=== PATIENT | male | born 1940 | race Caucasian/White ===

== ENCOUNTER 2018-05-04 07:23 | Observation (INO) ==
--- NOTE | 2018-05-04 08:05 | XR ---
EXAM DATE: 05/04/2018 8:03 AM EST AGE/SEX: 78 years / Male INDICATIONS: Chest pain. CLINICAL DATA: This is the patient's initial encounter. Patient reports that signs and symptoms have been present for 3 days and indicates a pain score of 8/10. MEDICAL/SURGICAL HISTORY: None. None. COMPARISON: No prior exams available for comparison. FINDINGS: A single AP view of the chest demonstrates the lungs to be symmetrically aerated without evidence of mass, infiltrate or effusion. The cardiomediastinal contours are unremarkable. Osseous structures a re intact. CONCLUSION: No focal or acute intrathoracic disease. Electronically signed by: Jhonny Gutierrez MD Board Certified Radiologist 05/04/2018 8:04 AM EST
[2018-05-04 08:08] LABS: Baso % (Auto) 0.2 % (0.0-2.0); Eos % (Auto) 0.2 % (0.0-4.0); Hematocrit 50.4 % (39.0-51.0); Hemoglobin 16.9 gm/dL (13.0-17.0); Lymph # (Auto) 3.1 th/mm3 (1.0-4.8); Lymph % (Auto) 24.9 % (9.0-44.0); Mean Corpuscular HGB Conc 33.5 % (32.0-36.0); Mean Corpuscular Hemoglobin 33.1 pg (27.0-34.0); Mean Corpuscular Volume 99.1 fL (80.0-100.0); Mean Platelet Volume 7.4 fL (7.0-11.0); Mono # (Auto) 1.2 th/mm3 (0.0-0.9); Mono % (Auto) 10.2 % (0.0-8.0); Neut # (Auto) 7.9 th/mm3 (1.8-7.7); Neut % (Auto) 64.5 % (16.0-70.0); Platelet Count 265 th/mm3 (150-450); Red Blood Count 5.09 mil/mm3 (4.50-5.90); Red Cell Distribution Width 14.3 % (11.6-17.2); White Blood Count 12.3 th/mm3 (4.0-11.0)
--- NOTE | 2018-05-04 08:09 | ED ---
HPI General Chief Complaint: Chest Pain Stated Complaint: chest pain Time Seen by Provider: 05/04/18 07:44 Source: patient and family Mode of arrival: ambulatory Limitations: no limitations History of Present Illness HPI narrative: Patient is a pleasant 78-year-old male who presents the emergency room with complaints of chest pain. Patient reports that he has history of gout as well as hypertension. Patient reports that he has been having chest pain over the past few days. Chest pain is intermittent in nature. Patient reports that the pain was worse yesterday and has been persistent. Reports that the pain started when he went on [employer] [place]. Patient reports that the pain feels like a sharp, dull pain to his chest. It is substernal in nature and radiates across his chest to his right shoulder. Patient reports that chest pain is exacerbated by inspiration. He is having shortness of breath at rest as well as on exertion. Patient reports that he has had chest pain for the past 10 years, reports that he has had workups in [place] and the agile java developer could not find out why he was having these chest pains. He was last seen by a agile java developer in [place] about 5-6 years ago, he has not established care with a agile java developer here in [place]. He currently lives in [place]. Onset (ago): day(s) Duration: constant Onset: during rest and during exertion Pain location: Reports substernal and right chest Severity: similar to previous episodes Severity scale (1-10): 5 Quality: Reports tightness and aching Pain radiation: Reports RUE Relieving factors: nothing Exacerbating factors: inspiration Treatments prior to arrival chest pain: Reports none Related Data Home Medications Medication Instructions Recorded Confirmed allopurinol 100 mg PO DAILY 05/04/18 05/04/18 losartan 50 mg PO DAILY 05/04/18 05/04/18 metoprolol tartrate 25 mg PO BID 05/04/18 05/04/18 Allergies Allergy/AdvReac Type Severity Reaction Status Date / Time No Known Allergies Allergy Verified 05/04/18 07:40 Review of Systems ROS: all other systems reviewed are negative [facility] Medical History Medical History Gout (Acute) HBP (high blood pressure) (Acute) Surgical History Surgical History History of hand surgery (Acute) Social History Social History Substance History: No History of Abuse Second Hand Smoke Exposure: No Smoking Status: Never smoker How Often Do You Have a Drink Containing Alcohol: Never Recent Travel in [facility] within the Last 8 Weeks: No Recent Out of Country Travel within the Last 8 Weeks: No Immunization History Tetanus Immunization: <5 Years Exam Narrative Exam Narrative: GENERAL: NAD SKIN: Focused skin assessment warm/dry. HEAD: Atraumatic. Normocephalic. EYES: Pupils equal and round. No scleral icterus. No injection or drainage. ENT: No nasal bleeding or discharge. Mucous membranes pink and moist. NECK: Trachea midline. No JVD. CARDIOVASCULAR: Regular rate and rhythm. No murmur appreciated. RESPIRATORY: No accessory muscle use. Clear to auscultation. Breath sounds equal bilaterally. GASTROINTESTINAL: Abdomen soft, non-tender, nondistended. Hepatic and splenic margins not palpable. MUSCULOSKELETAL: No obvious deformities. No clubbing. No cyanosis. No edema. NEUROLOGICAL: Awake and alert. No obvious cranial nerve deficits. Motor grossly within normal limits. Normal speech. PSYCHIATRIC: Appropriate mood and affect; insight and judgment normal. Course Initial Documented Vital Signs Temperature 98.2 F 05/04/18 07:26 Pulse Rate 85 05/04/18 07:26 Respiratory Rate 18 05/04/18 07:26 Blood Pressure 130/65 05/04/18 07:26 Pulse Oximetry 97 05/04/18 07:26 Last Documented Vital Signs Temperature 98 F 05/04/18 08:59 Pulse Rate 75 05/04/18 08:59 Respiratory Rate 16 05/04/18 08:59 Blood Pressure 122/59 L 05/04/18 08:59 Pulse Oximetry 96 05/04/18 08:59 Medical Decision Making MDM Narrative Medical decision making narrative: During the course of the patients emergency department visit, the patients history, examination, and differential diagnosis were reviewed with the patient. The patient was placed on a cardiac/vascular sonographer with oximetry and frequent blood pressure monitoring. The patient had an IV access obtained and blood work sent for analysis. The patient was initially provided aspirin as well as sublingual nitroglycerin to help with this chest pain. A CT was ordered to rule out PE given his pleuritic symptoms. The patients laboratory studies were reviewed and remarkable for wbc 12.3, hgb 16.9, hct 50.4, platelet 265 inr 1.1 Sodium 137, potassium 4.9, BUN 23, creatinine 1.56, glucose 103 Troponin less than 0.02, BNP 59 AST 45, ALT 93, alk phos 141 Radiology studies were reviewed and remarkable for X-ray the chest shows no focal or acute intrathoracic disease CTA: Negative for PE, no focal or acute pulmonary infiltrates Medical Screen Exam Complete: Yes Emergency Medical Condition: Yes Differential Diagnosis Differential Diagnosis: ACS, arrhythmia, PE, costochondritis Medical Records Medical records reviewed: Yes I reviewed the patient's medical records. Lab Data Lab results reviewed: Yes I reviewed the patient's lab results. Result diagrams: 05/04/18 07:00 05/04/18 07:00 Lab Results 05/04/18 05/04/18 05/04/18 Range/Units 07:00 07:00 07:00 WBC 12.3 H (4.0-11.0) th/mm3 RBC 5.09 (4.50-5.90) mil/mm3 Hgb 16.9 (13.0-17.0) gm/dL Hct 50.4 (39.0-51.0) % MCV 99.1 (80.0-100.0) fL MCH 33.1 (27.0-34.0) pg MCHC 33.5 (32.0-36.0) % RDW 14.3 (11.6-17.2) % Plt Count 265 (150-450) th/mm3 MPV 7.4 (7.0-11.0) fL Neut % (Auto) 64.5 (16.0-70.0) % Lymph % (Auto) 24.9 (9.0-44.0) % Pettis % (Auto) 10.2 H (0.0-8.0) % Eos % (Auto) 0.2 (0.0-4.0) % Baso % (Auto) 0.2 (0.0-2.0) % Neut # (Auto) 7.9 H (1.8-7.7) th/mm3 Lymph # (Auto) 3.1 (1.0-4.8) th/mm3 [place] # (Auto) 1.2 H (0.0-0.9) th/mm3 Eos # (Auto) 0.0 (0.0-0.4) th/mm3 Baso # (Auto) 0.0 (0.0-0.2) th/mm3 WBC Differential . Differential Comment Auto diff final PT 11.6 (9.8-11.6) sec INR 1.1 Ratio APTT 29.4 (23.4-31.7) sec Sodium 137 (136-145) meq/L Potassium 4.9 (3.5-5.1) meq/L Chloride 111 H (98-107) meq/L Carbon Dioxide 19.5 L (21.0-32.0) meq/L Anion Gap 7 (5-15) meq/L BUN 24 H (7-18) mg/dL Creatinine 1.56 H (0.60-1.30) mg/dL Estimated GFR 43 L (>89) mL/min Random Glucose 103 (74-106) mg/dL Calcium 9.1 (8.5-10.1) mg/dL Total Bilirubin 0.9 (0.2-1.0) mg/dL AST 45 H (15-37) U/L ALT 93 H (12-78) U/L Alkaline Phosphatase 141 H (45-117) U/L Total Creatine Kinase 97 (39-308) U/L Troponin I Less than 0.02 L (0.02-0.05) ng/mL B-Natriuretic Peptide (0-100) pg/mL Total Protein 8.2 (6.4-8.2) g/dL Albumin 3.8 (3.4-5.0) g/dL Lipase 175 (73-393) U/L 05/04/18 Range/Units 07:00 WBC (4.0-11.0) th/mm3 RBC (4.50-5.90) mil/mm3 Hgb (13.0-17.0) gm/dL Hct (39.0-51.0) % MCV (80.0-100.0) fL MCH (27.0-34.0) pg MCHC (32.0-36.0) % RDW (11.6-17.2) % Plt Count (150-450) th/mm3 MPV (7.0-11.0) fL Neut % (Auto) (16.0-70.0) % Lymph % (Auto) (9.0-44.0) % Pettis % (Auto) (0.0-8.0) % Eos % (Auto) (0.0-4.0) % Baso % (Auto) (0.0-2.0) % Neut # (Auto) (1.8-7.7) th/mm3 Lymph # (Auto) (1.0-4.8) th/mm3 [place] # (Auto) (0.0-0.9) th/mm3 Eos # (Auto) (0.0-0.4) th/mm3 Baso # (Auto) (0.0-0.2) th/mm3 WBC Differential Differential Comment PT (9.8-11.6) sec INR Ratio APTT (23.4-31.7) sec Sodium (136-145) meq/L Potassium (3.5-5.1) meq/L Chloride (98-107) meq/L Carbon Dioxide (21.0-32.0) meq/L Anion Gap (5-15) meq/L BUN (7-18) mg/dL Creatinine (0.60-1.30) mg/dL Estimated GFR (>89) mL/min Random Glucose (74-106) mg/dL Calcium (8.5-10.1) mg/dL Total Bilirubin (0.2-1.0) mg/dL AST (15-37) U/L ALT (12-78) U/L Alkaline Phosphatase (45-117) U/L Total Creatine Kinase (39-308) U/L Troponin I (0.02-0.05) ng/mL B-Natriuretic Peptide 59 (0-100) pg/mL Total Protein (6.4-8.2) g/dL Albumin (3.4-5.0) g/dL Lipase (73-393) U/L Imaging Data Attestation: I personally reviewed and interpreted this imaging study as follows : Radiologist's impression: Chest X-Ray 05/04/18 07:32 CONCLUSION: No focal or acute intrathoracic disease. Chest CTA 05/04/18 08:01 CONCLUSION: 1. No evidence of pulmonary embolism. 2. No focal or acute pulmonary infiltrates. ECG Data EKG Prior to Arrival: No Attestation: I personally reviewed and interpreted this ECG as follows: Interpretation: EKG at 0741 shows normal sinus rhythm at 82 bpm, QT/QTc 337/376 , no acute ST or T wave changes Discharge Plan Discharge Disposition Patient Disposition: ED Admit(ED Internal Use Only) Discharge Condition Condition: Stable Discharge Details Diagnosis: Chest pain Physicians Team ED Provider: Marivel Roman Primary Care Provider: Jodei Donnelly Rxs /Orders / Referrals /Forms Prescriptions: No Action losartan 50 mg Tablet 50 mg PO DAILY RF: 0 allopurinol 100 mg Tablet 100 mg PO DAILY RF: 0 metoprolol tartrate 25 mg Tablet 25 mg PO BID RF: 0 Discharge Instructions Patient Printed Instructions: Chest Pain (ED) Status ED Status: With Doctor
[2018-05-04 08:22] LABS: Activated Partial Thrombo Time 29.4 sec (23.4-31.7); Alanine Aminotransferase 93 U/L (12-78); Albumin 3.8 g/dL (3.4-5.0); Anion Gap 7 meq/L (5-15); Aspartate Aminotransferase 45 U/L (15-37); Calcium 9.1 mg/dL (8.5-10.1); Carbon Dioxide 19.5 meq/L (21.0-32.0); Chloride 111 meq/L (98-107); Glomerular Filtration Rate 43 mL/min (>89); Glucose,Random 103 mg/dL (74-106); INR 1.1 Ratio; Lipase 175 U/L (73-393); Potassium 4.9 meq/L (3.5-5.1); Prothrombin Time 11.6 sec (9.8-11.6); Sodium 137 meq/L (136-145)
[2018-05-04 08:24] LABS: Alkaline Phosphatase 141 U/L (45-117); Blood Urea Nitrogen 24 mg/dL (7-18); Total Protein 8.2 g/dL (6.4-8.2)
[2018-05-04] MEDS ORDERED: Sod Chloride 0.9% Inj 1,000 ML IV.SIG SCH (08:30)
[2018-05-04 08:31] LABS: Creatine Kinase 97 U/L (39-308)
--- NOTE | 2018-05-04 09:24 | CT ---
EXAM DATE: 05/04/2018 9:18 AM EST AGE/SEX: 78 years / Male INDICATIONS: Left side chest pain. Shortness of breath. CLINICAL DATA: This is the patient's initial encounter. Patient reports that signs and symptoms have been present for 2 days and indicates a pain score of 5/10. MEDICAL/SURGICAL HISTORY: Hypertension. Gout. None. RADIATION DOSE: 10.7 CTDI (mGy) COMPARISON: No prior exams available for comparison. TECHNIQUE: Volumetric scanning was performed using a multi-row detector CT scanner during bolus infu leena of 76 ml Omnipaque 350 (iohexol) nonionic water-soluble contrast as a single exam dose. The marya a was post processed with a variety of visualization algorithms including full volume maximum intensi ty projection and sliding thin slab reformation. Using automated exposure control and adjustment of t he mA and/or kV according to patient size, radiation dose was kept as low as reasonably achievable to obtain optimal diagnostic quality images. DICOM format image data is available electronically for r eview and comparison. FINDINGS: Pulmonary Arteries: No filling defects are seen in the pulmonary arteries out to the subsegmental ve ssels. The left and right pulmonary arteries are normal in diameter. Lung: No infiltrates seen. Effusion: None. There is some mild pleural thickening in both posterior lower lungs. Mediastinum: No evidence of mediastinal or hilar adenopathy. Other: The axilla is unremarkable. CONCLUSION: 1. No evidence of pulmonary embolism. 2. No focal or acute pulmonary infiltrates. Electronically signed by: Jhonny Gutierrez MD Board Certified Radiologist 05/04/2018 9:23 AM EST
[2018-05-04] MEDS ORDERED: Ketorolac Inj 30 MG/ML (IVP) Vial IV.PUSH ONE (09:38)
--- NOTE | 2018-05-04 12:05 | P.HPCA ---
History of Present Illness Primary Care Physician: Jodie Donnelly MD Chief Complaint: Chest pain History of Present Illness: This is a 78-year-old male with history of hypertension and gout that presents to ED to be evaluated for chest discomfort. States that he began having chest discomfort 2 days ago and states that has been a constant hard sharp discomfort ever since. Nothing really seems to improve it but is found that taking a deep breath will worsen it. May be a little short of breath. Denies nausea or diaphoresis. He was in the center of his chest. Denies radiation of the discomfort. Currently discomfort is a 5 out of 10 but is worse level is a 10 out of 10. States that is not terribly unusual for him to have chest discomfort stating that he has had intermittent chest pain for over 10 years. He has had multiple workups but the last being 6-7 years ago. States he has had stress test that have always been okay. Intermittent discomfort occurs 4 days and then may go away for a few months and follow that type of pattern. Nothing in particular seems to bring on the discomfort. Past medical history: Hypertension and gout. Denies hyperlipidemia, diabetes, and known CAD. Family history: States his father had an CT in his early 60s and a brother had a stent in his 60s. Social history: Patient says she has been a non-smoker. States he smoked maybe a couple years in his late teens early 20s. - Diagnosis (1) Chest pain (2) Hypertension Review of Systems General: Patient denies fevers, chills, and recent travel. HEENT: Patient denies headache, sore throat, difficulty swallowing. Cardiovascular: Has the chest discomfort as mentioned above. Denies sensation of heart beating rapidly or irregularly. No syncope. Denies diaphoresis. Respiratory: He was a little short of breath. He also found that taking a deep breath was worsening symptoms this morning. Denies coughing wheezing or hemoptysis. GI: Patient denies nausea, vomiting, diarrhea, abdominal pain, bloody stools. Musculoskeletal: Patient denies joint pain or edema. Denies calf pain or edema. Neurovascular: Patient denies numbness, tingling, weakness in extremities. Denies headache. Endocrine: Denies polyuria and polydipsia. Hematologic: Denies easy bruising. Skin: Denies rash or itching. PMFSH - History History Provided By: Patient - Medical History Medical History: Medical History (Last Reviewed 05/04/18 @ 08:07 by Marivel Roman) Gout HBP (high blood pressure) - Surgical History Surgical History: Surgical History (Last Reviewed 05/04/18 @ 08:07 by Marivel Roman) History of hand surgery - Tobacco History Second Hand Smoke Exposure: No Smoking Status: Never smoker - Alcohol History How Often Do You Have a Drink Containing Alcohol: Never - Substance Use History Substance History: No History of Abuse - Travel History Recent Travel in the [place] Within the Last 8 Weeks: No Recent Travel Out of the Country Within the Last 8 Weeks: No - Immunization History Tetanus Immunization: <5 Years Medications and Allergies Active Medications: Active Medications Ondansetron HCl (Zofran Inj) 4 mg IV.PUSH Q6H PRN PRN Reason: NAUSEA Sodium Chloride (Ns Flush) 2 ml IV.FLUSH UNSCH PRN PRN Reason: FLUSH AFTER USING IV ACCESS Last Admin: 05/04/18 10:13 Dose: 2 ml Sodium Chloride (Ns Flush) 2 ml IV.FLUSH BID DUARTE Sodium Chloride (Ns Flush) 2 ml IV.FLUSH PRN PRN PRN Reason: FLUSH AFTER USING IV ACCESS Allergies Allergy/AdvReac Type Severity Reaction Status Date / Time No Known Allergies Allergy Verified 05/04/18 07:40 Home Medications Medication Instructions Recorded Confirmed Type allopurinol 100 mg PO DAILY 05/04/18 05/04/18 History losartan 50 mg PO DAILY 05/04/18 05/04/18 History metoprolol tartrate 25 mg PO BID 05/04/18 05/04/18 History Exam Vital signs: Vital Signs 05/04/18 07:26 05/04/18 07:29 05/04/18 07:32 Temperature 98.2 F 98 F Pulse Rate 85 70 82 Respiratory Rate 18 20 18 Blood Pressure 130/65 76/40 L 156/79 H Pulse Oximetry 97 96 97 05/04/18 08:10 05/04/18 08:12 05/04/18 08:16 Temperature Pulse Rate 84 Respiratory Rate 20 20 17 Blood Pressure 101/60 Pulse Oximetry 96 05/04/18 08:35 05/04/18 08:59 05/04/18 10:10 Temperature 98 F 97.8 F Pulse Rate 75 78 Respiratory Rate 18 16 17 Blood Pressure 122/59 L 127/64 Pulse Oximetry 96 96 05/04/18 10:40 Temperature Pulse Rate Respiratory Rate 17 Blood Pressure Pulse Oximetry Intake & Output 05/03/18 05/04/18 05/04/18 18:59 06:59 18:59 Intake Total 1000 / 1000 Balance 1000 / 1000 Weight 95.708 kg Intake: IV 1000 / 1000 NS Inj 1,000 ML @ 1000 mls/hr 1000 / 1000 IV.SIG BOLUS [facility]ARTE Rx#:[id number] Narrative: GENERAL: This is a well-nourished, well-developed patient, in no apparent distress. Patient speaks in clear complete sentences. Patient is pleasant. HEENT: Head is atraumatic and normocephalic. Neck is supple without lymphadenopathy and trachea is midline. No JVD or carotid bruits. CARDIOVASCULAR: Regular rate and rhythm without murmurs, gallops, or rubs. RESPIRATORY: Clear to auscultation. Breath sounds equal bilaterally. No wheezes , rales, or rhonchi. Chest wall is nontender. No use of accessory muscles. GASTROINTESTINAL: Abdomen is nontender, nondistended. Abdomen soft. No obvious pulsatile mass or bruit. No CVA tenderness. Strong femoral pulses bilaterally. Normal bowel sounds in all quadrants. MUSCULOSKELETAL: Patient is moving upper and lower extremities freely. No calf tenderness or edema, no Homans sign. Strong pulses in upper and lower extremities. NEUROLOGICAL: Patient is alert and oriented. Cranial nerves 2-12 are grossly intact. No focal deficits and speech is clear. SKIN: No rash and turgor is normal. Results 05/04/18 07:00 05/04/18 07:00 Cardiac Enzymes 05/04/18 05/04/18 Range/Units 07:00 07:00 AST 45 H (15-37) U/L Troponin I Less than 0.02 L (0.02-0.05) ng/mL B-Natriuretic Peptide 59 (0-100) pg/mL Coagulation 05/04/18 05/04/18 Range/Units 07:00 07:00 PT 11.6 (9.8-11.6) sec APTT 29.4 (23.4-31.7) sec B-Natriuretic Peptide 59 (0-100) pg/mL CBC 05/04/18 Range/Units 07:00 WBC 12.3 H (4.0-11.0) th/mm3 RBC 5.09 (4.50-5.90) mil/mm3 Hgb 16.9 (13.0-17.0) gm/dL Hct 50.4 (39.0-51.0) % Plt Count 265 (150-450) th/mm3 Neut # (Auto) 7.9 H (1.8-7.7) th/mm3 Lymph # (Auto) 3.1 (1.0-4.8) th/mm3 [place] # (Auto) 1.2 H (0.0-0.9) th/mm3 Eos # (Auto) 0.0 (0.0-0.4) th/mm3 Baso # (Auto) 0.0 (0.0-0.2) th/mm3 Comprehensive Metabolic Panel 05/04/18 Range/Units 07:00 Sodium 137 (136-145) meq/L Potassium 4.9 (3.5-5.1) meq/L Chloride 111 H (98-107) meq/L Carbon Dioxide 19.5 L (21.0-32.0) meq/L BUN 24 H (7-18) mg/dL Creatinine 1.56 H (0.60-1.30) mg/dL Calcium 9.1 (8.5-10.1) mg/dL AST 45 H (15-37) U/L ALT 93 H (12-78) U/L Alkaline Phosphatase 141 H (45-117) U/L Total Protein 8.2 (6.4-8.2) g/dL Albumin 3.8 (3.4-5.0) g/dL Intake and Output 05/03/18 05/04/18 05/04/18 22:59 06:59 14:59 Intake Total 1000 / 1000 Balance 1000 / 1000 Intake: IV 1000 / 1000 NS Inj 1,000 ML @ 1000 mls/hr 1000 / 1000 IV.SIG BOLUS [facility] Rx#:[id number] Other: Weight 95.708 kg Patient Weight 05/05/18 06:59 Weight 95.708 kg - Imaging and Cardiology Imaging: Impressions Chest X-Ray 05/04/18 07:32 CONCLUSION: No focal or acute intrathoracic disease. Chest CTA 05/04/18 08:01 CONCLUSION: 1. No evidence of pulmonary embolism. 2. No focal or acute pulmonary infiltrates. EKG interpretations - EKG EKG shows: sinus rhythm (Initial EKG is sinus rhythm without significant ST segment depressions or elevations.) Caprini VTE Risk Assessment Caprini VTE Risk Assessment: Moderate/High Risk (score >= 2) Caprini Risk Assessment Model: Point Value = 1 Point Value = 2 Point Value = 3 Point Value = 5 Age 41-60 Minor surgery BMI > 25 kg/m2 Swollen legs Varicose veins or History of unexplained or recurrent spontaneous Oral contraceptives or hormone replacement Sepsis (< 1 month) Serious lung disease, including pneumonia (< 1 month) Abnormal pulmonary function Acute myocardial infarction Congestive heart failure (< 1 month) History of inflammatory bowel disease Medical patient at bed rest Age 61-74 Arthroscopic surgery Major open surgery (> 45 min) Laparoscopic surgery (> 45 min) Malignancy Confined to bed (> 72 hours) Immobilizing plaster cast Central venous access Age >= 75 History of VTE Family history of VTE Factor V Leiden Prothrombin [id number] Lupus anticoagulant Anticardiolipin antibodies Elevated serum homocysteine Heparin-induced thrombocytopenia Other congenital or acquired thrombophilia Stroke (< 1 month) Elective arthroplasty Hip, pelvis, or leg fracture Acute spinal cord injury (< 1 month) Prophylaxis Regimen: Total Risk Factor Score Risk Level Prophylaxis Regimen 0-1 Low Early ambulation 2 Moderate Order ONE of the following: *Sequential Compression Device (SCD) *Heparin 5000 units SQ BID 3-4 Higher Order ONE of the following medications: *Heparin 5000 units SQ TID *Enoxaparin/Lovenox 40 mg SQ daily (WT < 150 kg, CrCl > 30 mL/min) *Enoxaparin/Lovenox 30 mg SQ daily (WT < 150 kg, CrCl > 10-29 mL/min) *Enoxaparin/Lovenox 30 mg SQ BID (WT < 150 kg, CrCl > 30 mL/min) AND/OR *Sequential Compression Device (SCD) 5 or more Highest Order ONE of the following medications: *Heparin 5000 units SQ TID (Preferred with Epidurals) *Enoxaparin/Lovenox 40 mg SQ daily (WT < 150 kg, CrCl > 30 mL/min) *Enoxaparin/Lovenox 30 mg SQ daily (WT < 150 kg, CrCl > 10-29 mL/min) *Enoxaparin/Lovenox 30 mg SQ BID (WT < 150 kg, CrCl > 30 mL/min) AND *Sequential Compression Device (SCD) Assessment and Plan - Assessment (1) Chest pain Code(s): R07.9 - Chest pain, unspecified Status: Acute (2) Hypertension Code(s): I10 - Essential (primary) hypertension Status: Acute - Plan * Chest pain: Patient will continue to have serial cardiac enzymes and EKGs for ruling out purposes and will be seen by Dr. Ornelas of cardiology in the chest pain center. He will likely undergo a Lexiscan if ruled out. He would be discharged home if his stress test is nonischemic with instructions to follow -up with his PCP and return to ED for interval issues. * Hypertension: Continue medication. Patient is stable at this time. He is agreeable to this plan. (1) Chest pain Qualifiers: Chest pain type: unspecified Qualified Code(s): R07.9 - Chest pain, unspecified
[2018-05-04 12:46] VITALS: O2SAT 95
[2018-05-04 12:46] LABS: Creatine Kinase 82 U/L (39-308)
[2018-05-04] MEDS ORDERED: Regadenoson Inj 0.4 MG/5 ML Syringe IV.PUSH ONE (13:09)
--- NOTE | 2018-05-04 14:10 | ECG ---
Date Performed: 05/04/2018 Time Performed: 12:37:26 PTAGE: 78 years EKG: Sinus rhythm BORDERLINE LEFT AXIS DEVIATION BORDERLINE ECG No significant change from prior electrocardiogram. PREVIOUS TRACING : 05/04/2018 07.41 DOCTOR: Jose Watt Interpretating Date/Time 05/04/2018 14:10:39
--- NOTE | 2018-05-04 14:47 | ECG ---
Date Performed: 05/04/2018 Time Performed: 07:41:47 PTAGE: 78 years EKG: Sinus rhythm MARKED LEFT AXIS DEVIATION PATTERN CONSISTENT WITH PULMONARY DISEASE ABNORMAL ECG Since the PREVIOUS TRACING , no significant change noted PREVIOUS TRACIN01/30/2007 15.38 DOCTOR: Sheron Burton Interpretating Date/Time 05/04/2018 14:40:37
--- NOTE | 2018-05-04 15:04 | NM ---
EXAM DATE: 05/04/2018 3:00 PM EST AGE/SEX: 78 years / Male INDICATIONS:Angina. . Sub-sternal chest pain radiating across chest to the right shoulder with dyspne a. CLINICAL DATA: This is the patient's initial encounter. Patient reports that signs and symptoms have been present for 4 - 6 days and indicates a pain score of 5/10. MEDICAL/SURGICAL HISTORY: Hypertension. Gout. . Hand. COMPARISON: No prior exams available for comparison. DOSE: 8.5 mCi Tc 99m Myoview at rest 25.4 mCi [id number] at stress 0.4 mg Lexiscan STRESS SYMPTOMS: Dyspnea. EJECTION FRACTION: 63 % TECHNIQUE: The patient underwent pharmacologic stress with infusion of prescribed dose. Continuous ECG tracing was monitored during stress. Gated SPECT imaging was performed after stress and conventi onal SPECT imaging was performed at rest. The examination was performed on a SPECT/CT scanner, both attenuation and non-corrected datasets were reviewed. FINDINGS: Distribution: The maximum perfused segment at stress is in the septal wall. Perfusion Study: The pattern of perfusion at stress is within normal limits. Gated Study: There are intact wall motion and wall thickening without hypokinetic or dyskinetic segm ents. The ejection fraction is calculated at 63%. RISK CATEGORY: Low (<1% Annual Mortality Rate) CONCLUSION: 1. Unremarkable myocardial perfusion examination. Electronically signed by: Jhonny Gutierrez MD Board Certified Radiologist 05/04/2018 3:02 PM EST
[2018-05-04 16:13] VITALS: BP 143/67; PULSE 72; RESP 18; TEMP 99.8
--- NOTE | 2018-05-04 17:14 | TR ---
Date Performed: 05/04/2018 Time Performed: 14:16:46 DOCTOR: Brigitte Ornelas DRUG LIST: CLINICAL HISTORY: CHEST PAIN REASON FOR TEST: CHEST PAIN REASON FOR ENDING: OBSERVATION: CONCLUSION: Lexiscan stress test was performed under standard four minute protocol. Radionuclid e was injected one minute prior to ending the test. No electrocardiographic abormalities were present to suggest ischemia. Nuclear imaging and interpretation are pending. COMMENTS: Lexiscan stress test was performed under standard four minute protocol. Radionuclide was injected one minute prior to ending the test. No electrocardiographic abormalities were present t o suggest ischemia. Nuclear imaging and interpretation are pending.
== END 2018-05-04 17:51 | disposition home or self-care (01) ==
LOC: NEPE 07:23 → NEDA 07:23 → NEPFCDU 11:00
PROVIDERS: ADMIT Internal Medicine Interventional Cardiology; ATTEND Internal Medicine Interventional Cardiology
DX: M10.9 Gout, unspecified; I10 Essential (primary) hypertension; Z87.891 Personal history of nicotine dependence; R94.31 Abnormal electrocardiogram [ECG] [EKG]; Z82.49 Family history of ischemic heart disease and other diseases of the circulatory system; R07.9 Chest pain, unspecified
CPT/HCPCS: 71010; 71045; 71275; 78452; 80053; 82550; 83520; 83690; 83880; 84484; 85025; 85610; 85730; 90761; 93005; 93017; 96361; 96374; 99285; A9502; G0378; J1885; J2785; J7030; Q9967; Q9969